=== PATIENT | male | born 1990 | race Two or more races ===

== ENCOUNTER → 2017-09-29 | Emergency (ER) | payer OTHER ==
[~2017-09-29] VITALS: Ht 180.3 cm; Wt 80.3 kg
== END | disposition home or self-care (01) ==
LOC: ER 07:49
DX: H10.89 Other conjunctivitis (principal)

== ENCOUNTER 2018-03-31 11:44 | Emergency (ER) | payer OTHER ==
[~2018-03-31] VITALS: Ht 175.3 cm; Wt 79.4 kg
[2018-03-31] MEDS ORDERED: ZITHROMAX500 MG PO (13:52)
[2018-03-31] MEDS ORDERED: KETO10TA2 PO (13:52)
[2018-03-31] MEDS ORDERED: TESSALON PERLE100 M1 PO (13:52)
[2018-03-31] MEDS ORDERED: INTESTINEX680 M1 PO (13:52)
== END 2018-03-31 14:35 | disposition home or self-care (01) ==
LOC: ER 11:44
DX: J04.0 Acute laryngitis (principal); J06.9 Acute upper respiratory infection, unspecified

== ENCOUNTER 2019-03-11 06:29 | Outpatient (CLI) | payer OTHER ==
[~2019-03-11 06:29] MED LIST: INTESTINEX680 M1 PO; KETO10TA2 PO; TESSALON PERLE100 M1 PO; ZITHROMAX500 MG PO
== END 2019-03-11 06:37 | disposition home or self-care (01) ==
LOC: LAB 06:29
DX: N39.0 Urinary tract infection, site not specified (principal)

== ENCOUNTER 2019-03-12 15:49 | Outpatient (CLI) | payer OTHER | END 2019-03-12 18:00 | disposition home or self-care (01) | LOC: LAB 15:49 | DX: E78.49 Other hyperlipidemia (principal); Z00.00 Encounter for general adult medical examination without abnormal findings; E11.9 Type 2 diabetes mellitus without complications; E55.9 Vitamin D deficiency, unspecified ==

== ENCOUNTER 2019-04-07 09:40 | Outpatient (CLI) | payer OTHER | END 2019-04-07 12:48 | disposition home or self-care (01) | LOC: SONOGRAMA 09:40 → MAMO-SONO 09:45 → SONOGRAMA 12:48 → MAMO-SONO 13:15 | DX: N20.0 Calculus of kidney (principal) ==

== ENCOUNTER 2019-04-09 13:11 | Outpatient (CLI) | payer OTHER | END 2019-04-09 17:00 | disposition home or self-care (01) | LOC: RAD 13:11 | DX: M54.89 Other dorsalgia (principal) ==

== ENCOUNTER → 2019-07-20 10:18 | Outpatient (CLI) | payer OTHER | END | disposition home or self-care (01) | LOC: LAB 10:18 | DX: J11.1 Influenza due to unidentified influenza virus with other respiratory manifestations (principal); J20.0 Acute bronchitis due to Mycoplasma pneumoniae ==

== ENCOUNTER → 2019-12-17 11:35 | Outpatient (CLI) | payer OTHER | END | disposition home or self-care (01) | LOC: LAB 11:35 | DX: N39.0 Urinary tract infection, site not specified (principal); N41.8 Other inflammatory diseases of prostate ==

== ENCOUNTER 2019-12-30 08:13 | Outpatient (CLI) | payer OTHER | END 2019-12-30 08:14 | disposition home or self-care (01) | LOC: SONOGRAMA 08:13 | PROVIDERS: ATTEND Internal Medicine Infectious Disease | DX: K76.0 Fatty (change of) liver, not elsewhere classified (principal) ==

== ENCOUNTER → 2020-07-07 | Outpatient (CLI) | payer OTHER | END | disposition home or self-care (01) | LOC: PPH VACUNA 14:21 | DX: Z23 Encounter for immunization (principal) ==

== ENCOUNTER → 2021-03-20 10:40 | Outpatient (CLI) | payer OTHER | END | disposition home or self-care (01) | LOC: LAB 10:40 | PROVIDERS: ATTEND Internal Medicine Pulmonary Disease | DX: J20.8 Acute bronchitis due to other specified organisms (principal) ==

== ENCOUNTER → 2021-04-25 08:05 | Outpatient (CLI) | payer OTHER | END | disposition home or self-care (01) | LOC: PPH VACUNA 08:05 | PROVIDERS: ATTEND Emergency Medicine Pediatric Emergency Medicine | DX: Z23 Encounter for immunization (principal) ==

== ENCOUNTER 2021-04-28 09:00 | Outpatient (CLI) | payer OTHER | END 2021-04-28 09:30 | disposition home or self-care (01) | LOC: PPH VACUNA 09:00 | PROVIDERS: ATTEND Emergency Medicine Pediatric Emergency Medicine | DX: Z23 Encounter for immunization (principal) ==

== ENCOUNTER 2022-03-21 10:43 | Outpatient (CLI) | payer OTHER | END 2022-03-21 10:44 | disposition home or self-care (01) | LOC: LAB 10:43 | PROVIDERS: ATTEND Specialist | DX: R05.9 Cough, unspecified (principal); R50.9 Fever, unspecified; R06.02 Shortness of breath; Z03.818 Encounter for observation for suspected exposure to other biological agents ruled out; Z20.828 Contact with and (suspected) exposure to other viral communicable diseases ==

== ENCOUNTER 2022-05-22 12:00 | Outpatient (CLI) | payer OTHER | END 2022-05-22 12:05 | disposition home or self-care (01) | LOC: PPH VACUNA 12:00 | PROVIDERS: ATTEND Emergency Medicine Pediatric Emergency Medicine | DX: Z23 Encounter for immunization (principal) ==

== ENCOUNTER 2022-08-09 15:59 | Outpatient (CLI) | payer OTHER | END 2022-08-09 16:01 | disposition home or self-care (01) | LOC: LAB 15:59 | DX: B34.9 Viral infection, unspecified (principal); R05.9 Cough, unspecified ==

== ENCOUNTER 2023-03-07 15:26 | Outpatient (CLI) | payer OTHER | END 2023-03-07 23:00 | disposition home or self-care (01) | LOC: LAB 15:26 | DX: A49.2 Hemophilus influenzae infection, unspecified site (principal); A49.3 Mycoplasma infection, unspecified site; Z11.52 Encounter for screening for COVID-19 ==

== ENCOUNTER → 2023-05-02 09:07 | Outpatient (CLI) | payer OTHER ==
[2023-05-02 10:13] LABS: HEMATOCRIT 43.6 % (39.0-48.0); MEAN CELL VOLUME 89.5 fL (80.0-100.00); MEAN CORPUSCULAR HEMOGLOBIN 30.9 pg (27.00-32.0); MEAN CORPUSCULAR HGB CONC 34.5 g/dl (32.0-36.0); PLATELET COUNT 283 K/uL (150-450); RED BLOOD COUNT 4.87 M/uL (4.00-6.00); RED CELL DISTRIBUTION WIDTH 13.5 % (11.5-14.5)
[2023-05-02 10:57] LABS: CALCIUM 8.9 mg/dL (8.5-10.1); CREATININE SERUM 0.88 mg/dL (0.70-1.30); GFR 99.13; POTASSIUM 3.91 mEq/L (3.5-5.1)
[2023-05-02 11:34] LABS: MYCOPLASMA PNEUMONIAE IGM NON REACTIVE (NO REACTIVE)
== END | disposition home or self-care (01) ==
LOC: LAB 09:07
DX: R50.9 Fever, unspecified (principal); J11.1 Influenza due to unidentified influenza virus with other respiratory manifestations

== ENCOUNTER 2024-03-16 15:58 | Outpatient (CLI) | payer OTHER | END 2024-03-16 16:03 | disposition home or self-care (01) | LOC: RAD 15:58 | PROVIDERS: ATTEND Internal Medicine | DX: Z02.79 Encounter for issue of other medical certificate (principal) ==

== ENCOUNTER 2024-03-17 11:31 | Outpatient (CLI) | payer OTHER | END 2024-03-17 11:33 | disposition home or self-care (01) | LOC: LAB 11:31 | PROVIDERS: ATTEND Internal Medicine Infectious Disease | DX: A53.0 Latent syphilis, unspecified as early or late (principal) ==

== ENCOUNTER 2024-05-04 01:00 | Outpatient (CLI) | payer OTHER | END 2024-05-04 02:00 | disposition home or self-care (01) | LOC: PPH VACUNA 01:00 | PROVIDERS: ATTEND Emergency Medicine Pediatric Emergency Medicine | DX: Z23 Encounter for immunization (principal) ==

== ENCOUNTER 2024-05-23 00:55 | Emergency (ER) | payer OTHER ==
[~2024-05-23] VITALS: Ht 177.8 cm; Wt 85.7 kg
[2024-05-23] MEDS ORDERED: KETOROLAC TROMETHAMINE 60 MG VIAL IM STA (02:33)
[2024-05-23] MEDS ORDERED: DEXAMETHASONE SODIUM PHOSPHATE 4 MG/ML VIAL IM STA (02:34)
== END 2024-05-23 05:23 | disposition home or self-care (01) ==
LOC: ER 00:55
DX: M25.511 Pain in right shoulder (principal); R07.89 Other chest pain

== ENCOUNTER 2024-06-09 08:14 | Outpatient (CLI) | payer OTHER ==
[2024-06-09 09:45] LABS: MYCOPLASMA PNEUMONIAE IGM NON REACTIVE (NO REACTIVE)
== END 2024-06-09 08:19 | disposition home or self-care (01) ==
LOC: LAB 08:14
DX: J20.9 Acute bronchitis, unspecified (principal)

== ENCOUNTER 2024-11-02 11:12 | Outpatient (CLI) | payer OTHER ==
[2024-11-02 13:39] LABS: MYCOPLASMA PNEUMONIAE IGM NON REACTIVE (NO REACTIVE)
== END 2024-11-02 11:17 | disposition home or self-care (01) ==
LOC: LAB 11:12
PROVIDERS: ATTEND Internal Medicine Endocrinology, Diabetes & Metabolism
DX: J06.9 Acute upper respiratory infection, unspecified (principal)

== ENCOUNTER 2025-03-11 07:47 | Outpatient (CLI) | payer OTHER | END 2025-03-11 07:51 | disposition home or self-care (01) | LOC: RAD 07:47 | DX: Z00.8 Encounter for other general examination (principal) ==

== ENCOUNTER 2025-05-17 15:00 | Outpatient (CLI) | payer OTHER | END 2025-05-17 15:10 | disposition home or self-care (01) | LOC: PPH VACUNA 15:00 | PROVIDERS: ATTEND Emergency Medicine Pediatric Emergency Medicine | DX: Z23 Encounter for immunization (principal) ==

== ENCOUNTER → 2025-05-31 09:11 | Outpatient (CLI) | payer OTHER ==
[2025-05-31 10:00] LABS: BASO % 0.7 % (0.1-1.2); EOS # 0.09 (0.04-0.54); EOS % 1.5 % (0.7-7.0); LYMPH # 1.65 (1.18-3.74); LYMPH % 26.9 % (19.3-53.1); MEAN PLATELET VOLUME 9.80 fl (9.4-12.4); MONO # 0.47 (0.24-0.82); MONO % 7.7 % (4.7-12.5); NEUT # 3.88 (1.56-6.13); NEUT % 63.0 % (34.0-71.1); RED CELL DISTRIBUTION WIDTH 12.8 % (11.6-14.4)
[2025-05-31 11:11] LABS: ALT/SGPT 53.0 U/L (12-78); AST/SGOT 24.0 U/L (15-37); BILIRUBIN TOTAL 0.56 mg/dL (0.3-1.2); BUN CREA RATIO 13.0 (7.0-25.0); CHOL HDL RATIO 5.1 (0-5.0); CREATININE SERUM 0.87 mg/dL (0.70-1.30); GFR 99.29; GLOBULINA 3.7 G/DL (2.4-3.5); GLUCOSE FASTING 103.0 mg/dL (65-100); HDL 46.0 mg/dl (40-60); LDL 168.0 mg/dl (0-130); OSMOLALITY SERUM 279.0 MOSM/KG (275-295); TSH 2.33 uIU/mL (0.358-3.74); VLDL 20.0 (0-39)
[2025-05-31 12:56] LABS: URINE APPEARANCE Clear; URINE BILIRRUBIN Negative (NEGATIVE); URINE BLOOD Negative; URINE COLOR Yellow; URINE GLUCOSE Negative (NEGATIVE); URINE KETONE Trace (NEGATIVE); URINE LEUKOCYTE Negative; URINE NITRATE Negative; URINE PROTEIN Trace (NEGATIVE); URINE RBC 37.6 uL (0.0-20.8); URINE UROBILINOGEN 1.0 E.U./dl; URINE WBC 1.9 uL (0.0-23.2)
[2025-05-31 12:59] LABS: URINE BACTERIA 1.1 uL (0.0-1933); URINE CAST 0.14 uL (0.0-1.40); URINE EPITHELIAL CELLS 0.3 uL (0.0-38.8)
== END | disposition home or self-care (01) ==
LOC: LAB 09:11
PROVIDERS: ATTEND Internal Medicine Endocrinology, Diabetes & Metabolism
DX: E55.9 Vitamin D deficiency, unspecified (principal); E11.65 Type 2 diabetes mellitus with hyperglycemia; I10 Essential (primary) hypertension; E03.9 Hypothyroidism, unspecified; E78.2 Mixed hyperlipidemia